=== PATIENT | female | born 1960 | race Caucasian/White ===

== ENCOUNTER 2020-06-01 19:46 | Emergency (ER) | payer BC, SELFPAY ==
[2020-06-01 20:02] VITALS: BP 158/79; PULSE 77; RESP 16; TEMP 37.1; O2SAT 97
[2020-06-01] MEDS: TETANUS,DIPHTHERIA,AC PERTUSSIS ADULT (0.5 ML) BOOSTRIX IM (20:03)
--- NOTE | 2020-06-01 20:21 | ED.WOUNDLAC ---
HPI - Wound/Laceration General Chief Complaint: Wound/Laceration Stated Complaint: Finger Laceration Time Seen by Provider: 06/01/20 19:55 Source: patient and RN notes reviewed Mode of arrival: ambulatory Limitations: no limitations History of Present Illness HPI narrative: Patient presents today with a laceration to her left fourth finger that was sustained at 1845 tonight with kitchen mary. She currently rates her pain 3/10 and has tried no [id number] interventions prior to arrival, aside from holding pressure. She sought treatment tonight because she could not get the wound to stop bleeding. She is unsure of the date of her last tetanus vaccine. Related Data Allergies Allergy/AdvReac Type Severity Reaction Status Date / Time No Known Allergies Allergy Unknown Verified 11/09/15 09:20 Review of Systems Review of Systems: Narrative: CONSTITUTIONAL: Denies body aches, fever, chills, or sweats. EYES: Denies visual changes, redness, or discharge. ENT: Denies rhinorrhea, congestion, sore throat, or otalgia. CARDIOVASCULAR: Denies chest pain, palpitations, or edema. RESPIRATORY: Denies cough or dyspnea. GASTROINTESTINAL: Denies abdominal pain, nausea, vomiting, or diarrhea. GENITOURINARY: Denies dysuria or hematuria. SKIN: Denies rash, itching. + Laceration to left fourth finger MUSCULOSKELETAL: Denies back pain, joint pain, or myalgia. NEUROLOGIC: Denies headache, numbness, tingling, or weakness. PSYCH: Denies depression or anxiety. PMFSH Comments At time of signature, I have reviewed and agree with nursing past medical, surgical, social and family history unless otherwise noted. Please see nursing chart for further information. There is no relevant family history pertinent to the presenting complaint Exam Narrative: Exam Narrative: GENERAL: Well-appearing, well-nourished, and in no acute distress. HEAD: Normocephalic, atraumatic. EYES: EOMI. No redness or drainage. Conjunctivae normal. ENT: Mucous membranes pink and moist. NECK: Normal AROM. CHEST: No respiratory distress. EXTREMITIES: Normal range of motion. No edema. SKIN: Warm, dry, no rash. Capillary refill normal. Normal skin turgor. 1 x 0.5 cm partial-thickness flap laceration to the distal tip of the left fourth finger, palmar aspect. Moderate active bleeding. Distal sensation intact. Capillary refill normal. Full range of motion of the finger. Laceration did not penetrate to the adipose. Hemostasis was achieved with pressure to the wound. NEURO: No focal deficits. Alert and oriented x3. Gait steady. PSYCH: Normal affect. No signs of depression or anxiety. Course Vital Signs Vital signs: Vital Signs Temperature 98.7 F 06/01/20 20:02 Pulse Rate 77 06/01/20 20:02 Respiratory Rate 16 06/01/20 20:02 Blood Pressure 158/79 H 06/01/20 20:02 Pulse Oximetry 97 06/01/20 20:02 Temperature 98.7 F 06/01/20 20:02 Pulse Rate 77 06/01/20 20:02 Respiratory Rate 16 06/01/20 20:02 Blood Pressure 158/79 H 06/01/20 20:02 Pulse Oximetry 97 06/01/20 20:02 Reviewed. Pt has been instructed to follow up with her PCP regarding her elevated blood pressure today. Procedures Laceration Laceration 1: Date: 06/01/20 Time: 20:05 Site: hand Side (If applicable): left Size (cm): 1 Description: flap Depth: simple, single layer Local Anesthetic: lidocaine 1% Amount of anesthesia used (mL): 1 Pre-repair: wound explored and irrigated ====== Skin Level ====== Skin layer closed with: nylon Size (cm): 6-0 Number of sutures: 5 Technique: simple, interrupted ====== Subcutaneous Layer ====== ====== Muscle Layer ====== ====== Tendon Layer ====== Dressing: Nonadherent dressing applied by RN. Patient tolerated procedure well. MDM - Wound/Laceration Differential Diagnosis Differential diagnosis: Likely laceration, abrasion
== END 2020-06-01 20:31 | disposition home or self-care (01) ==
PROVIDERS: Emergency Provider Nurse Practitioner; PCP Family Medicine
DX: S61.215A Laceration without foreign body of left ring finger without damage to nail, initial encounter (principal); W27.2XXA Contact with scissors, initial encounter; Z23 Encounter for immunization
CPT/HCPCS: 12001; 90471; 90715; 99212; G0463